=== PATIENT | female | born 1970 | race Caucasian/White ===

== ENCOUNTER 2017-06-08 21:37 | Emergency (ER) | payer SELFPAY ==
[2017-06-08 21:50] VITALS: BP 117/75; PULSE 97; TEMP 98.4; BMI 28.3
[2017-06-08] MEDS ORDERED: ALBUTEROL SO4 2.5/IPRATROPIUM 0.5 INH SOL 3 ML VIAL.NEB. NEB ONE (23:12)
[2017-06-08] MEDS ORDERED: SODIUM CHLORIDE 500 ML IV STA (23:12)
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
[2017-06-08 23:57] LABS: URINE APPEARANCE SLCLOUDY; URINE BILIRUBIN NEGATIVE (NEGATIVE); URINE BLOOD NEGATIVE (NEGATIVE); URINE COLOR YELLOW; URINE GLUCOSE (UA) NEGATIVE (NEGATIVE); URINE KETONE NEGATIVE (NEGATIVE); URINE LEUK ESTERASE NEGATIVE (NEGATIVE); URINE NITRITE NEGATIVE (NEGATIVE); URINE PROTEIN NEGATIVE (NEGATIVE); URINE UROBILINOGEN NEGATIVE mg/dL (0.2-1.0)
[2017-06-09] MEDS ORDERED: ALBUTEROL SO4 2.5/IPRATROPIUM 0.5 INH SOL 3 ML VIAL.NEB. NEB ONE (01:05)
[2017-06-09] MEDS ORDERED: ACETAMINOPHEN 325 MG TABLET (FP) ONE (01:09)
[2017-06-09 02:05] LABS: ARTERIAL BLD GAS O2 SATURATION 97.5 % (90-98.9); ARTERIAL BLOOD GAS BASE EXCESS 0.4 meq/l (-2-2); ARTERIAL BLOOD GAS HCO3 24.8 meq/L (22-26); ARTERIAL BLOOD GAS pH 7.39 (7.35-7.45)
[2017-06-09 02:07] LABS: ALLENS TEST POSITIVE; ART PUNCT SITE RIGHT RADIAL; PT. ON O2? NO
[2017-06-09 02:08] LABS: LPM/O2% 21%; TYPE OF O2 ROOM AIR
[2017-06-09 02:09] LABS: METHEMOGLOBIN 0.6 % (0.4-1.5)
== END 2017-06-09 02:32 | disposition home or self-care (01) ==
LOC: JER 21:37
PROC: 3E0F7GC Introduction of Other Therapeutic Substance into Respiratory Tract, Via Natural or Artificial Opening (ICD-10-PCS; principal; 2017-06-08)
PROC: 3E0337Z Introduction of Electrolytic and Water Balance Substance into Peripheral Vein, Percutaneous Approach (ICD-10-PCS; 2017-06-08)
DX: R55 Syncope and collapse (principal); Z86.73 Personal history of transient ischemic attack (TIA), and cerebral infarction without residual deficits; F41.9 Anxiety disorder, unspecified; F17.210 Nicotine dependence, cigarettes, uncomplicated
CPT/HCPCS: 36600; 70450-TC; 71020-TC; 81003; 82375; 82803; 83050; 84703; 99282-25

== ENCOUNTER 2017-09-19 02:42 | Emergency (ER) | payer SELFPAY ==
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
[2017-09-19 03:28] VITALS: BMI 29.9
[2017-09-19 03:59] LABS: URINE APPEARANCE CLEAR; URINE BILIRUBIN NEGATIVE (NEGATIVE); URINE BLOOD 1+ (NEGATIVE); URINE COLOR STRAW; URINE GLUCOSE (UA) NEGATIVE (NEGATIVE); URINE KETONE TRACE (NEGATIVE); URINE LEUK ESTERASE NEGATIVE (NEGATIVE); URINE NITRITE NEGATIVE (NEGATIVE); URINE PROTEIN NEGATIVE (NEGATIVE); URINE UROBILINOGEN NEGATIVE mg/dL (0.2-1.0)
[2017-09-19 04:02] LABS: HCG,QUALITATIVE URINE NEGATIVE
[2017-09-19 04:18] LABS: EPI CELLS RARE /HPF (FEW); URINE HYALINE CAST 1 /lpf; URINE MUCUS RARE
[2017-09-19 05:30] VITALS: BP 113/75; PULSE 91; TEMP 98.4
== END 2017-09-19 06:01 | disposition home or self-care (01) ==
LOC: JER 02:42
DX: S06.0X0A Concussion without loss of consciousness, initial encounter (principal); Y04.2XXA Assault by strike against or bumped into by another person, initial encounter; Y93.89 Activity, other specified; Y92.038 Other place in apartment as the place of occurrence of the external cause; Y07.01 Husband, perpetrator of maltreatment and neglect
CPT/HCPCS: 70450-TC; 70486-TC; 71045-TC; 72125-TC; 81003; 81015; 84703; 99284-25

== ENCOUNTER → 2019-02-12 | Emergency (ER) | payer OTHER | LOC: JER 23:59 ==

== ENCOUNTER 2020-07-26 04:28 | Emergency (ER) | payer OTHER ==
[2020-07-26 04:40] VITALS: BMI 27.6
[2020-07-26] MEDS ORDERED: ACETAMINOPHEN 1000 MG/100 ML VIAL (NON FORMULARY) IVPB ONE (04:42)
[2020-07-26] MEDS ORDERED: morphine CARPU-JECT 2 MG/1 ML DISP.SYRIN IVPUSH ONE (04:43)
[2020-07-26] MEDS ORDERED: morphine SULFATE 4 MG/ML VIAL ONE (04:48)
[2020-07-26 05:29] LABS: BASO % 0.8 % (0-2.0); EOS % 1.4 % (0-4.5); HEMATOCRIT 36.3 % (32.4-45.2); HEMOGLOBIN 11.6 GM/dL (10.7-15.3); LYMPH % 39.6 % (8-40); MCH 27.3 pg (25.7-33.7); MCHC 31.9 g/dl (32.0-36.0); MEAN CELL VOLUME 85.5 fl (80-96); MEAN PLT VOLUME 9.1 fl (7.5-11.1); MONO % 9.3 % (3.8-10.2); NEUT % 48.9 % (42.8-82.8); PLATELET COUNT 245 K/MM3 (134-434); RBC 4.24 M/mm3 (3.60-5.2); RDW 13.7 % (11.6-15.6); WHITE BLOOD COUNT 8.2 K/mm3 (4.0-10.0)
[2020-07-26 05:53] LABS: CHLORIDE 104 mmol/L (98-107); SODIUM 139 mmol/L (136-145)
[2020-07-26 05:55] LABS: CALCIUM 9.1 mg/dL (8.5-10.1)
[2020-07-26 05:56] LABS: ALBUMIN 4.1 g/dl (3.4-5.0); ANION GAP 4 MMOL/L (8-16); BLOOD UREA NITROGEN 16.8 mg/dL (7-18); CO2 31 mmol/L (21-32); GLUCOSE,RANDOM 102 mg/dL (74-106)
[2020-07-26 05:59] LABS: SGOT/AST 11 U/L (15-37); SGPT/ALT 16 U/L (13-61)
[2020-07-26 06:01] LABS: BILIRUBIN,TOTAL 0.2 mg/dL (0.2-1); TOT PROT 7.2 g/dl (6.4-8.2)
[2020-07-26 06:02] LABS: ALK PHOS 84 U/L (45-117)
[2020-07-26] MEDS ORDERED: CLOPIDOGREL BISULFATE 300 MG TABLET PO ONE (06:07)
[2020-07-26] MEDS ORDERED: LIDOCAINE 5% TOPICAL PATCH TP ONE (06:08)
[2020-07-26] MEDS ORDERED: CLOPIDOGREL BISULFATE 300 MG TABLET ONE (06:10)
[2020-07-26] MEDS ORDERED: LIDOCAINE 5% TOPICAL PATCH ONE (06:10)
[2020-07-26] MEDS ORDERED: METOCLOPRAMIDE HCL INJECTION 10 MG/2 ML VIAL IVPUSH ONE (06:21)
[2020-07-26] MEDS ORDERED: METOCLOPRAMIDE HCL INJECTION 10 MG/2 ML VIAL ONE (06:27)
[2020-07-26 06:46] LABS: INR 1.07 (0.83-1.09); PROTHROMBIN TIME (PATIENT) 12.9 SEC (9.7-13.0)
[2020-07-26] MEDS ORDERED: DEXAMETHASONE SOD PHOSPHATE 10 MG/1 ML VIAL IVPUSH ONE (07:17)
[2020-07-26] MEDS ORDERED: ACETAMINOPHEN/CAFFEINE/BUTALBITAL 1 TAB PO ONE (07:17)
[2020-07-26] MEDS ORDERED: MAGNESIUM SULF 50% (8.12 MEQ/2 ML-1 GM VIAL) IVPB ONE (07:17)
[2020-07-26] MEDS ORDERED: DEXAMETHASONE SOD PHOSPHATE 10 MG/1 ML VIAL ONE (07:36)
[2020-07-26] MEDS ORDERED: MAGNESIUM 1GM/D5W - 2 GM/200 ML IVPB IVPB ONE (07:36)
[2020-07-26] MEDS ORDERED: ACETAMINOPHEN/CAFFEINE/BUTALBITAL 1 TAB ONE (07:36)
[2020-07-26 10:06] VITALS: BP 110/63; PULSE 60; TEMP 97.9
[2020-07-26 11:59] LABS: LIPASE 159 U/L (73-393)
[2020-07-26] MEDS ORDERED: LIDOCAINE PATCH REMOVAL MC SCH (22:00)
== END 2020-07-26 10:29 | disposition home or self-care (01) ==
LOC: FER 04:28
PROC: 3E033NZ Introduction of Analgesics, Hypnotics, Sedatives into Peripheral Vein, Percutaneous Approach (ICD-10-PCS; principal; 2020-07-26)
PROC: 3E033GC Introduction of Other Therapeutic Substance into Peripheral Vein, Percutaneous Approach (ICD-10-PCS; 2020-07-26)
DX: R51.9 Headache, unspecified (principal); R07.9 Chest pain, unspecified
CPT/HCPCS: 36415; 70450-TC; 71045-TC-FY; 80053; 82550; 83690; 84484; 85025; 85610; 85651; 86140; 93005; 99285-25; J0131; J1100

== ENCOUNTER 2020-07-31 04:26 | Inpatient (IN) | payer OTHER ==
[2020-07-28 17:26] VITALS: BMI 33.3
[2020-07-31] MEDS ORDERED: LIDOCAINE HCL/PF 2% SDV 5ML VIAL ONE (12:39)
[2020-07-31] MEDS ORDERED: DEXAMETHASONE SOD PHOSPHATE 4 MG/1 ML VIAL ONE (12:39)
[2020-07-31] MEDS ORDERED: fentaNYL CITRATE 250 MCG/5 ML VIAL ONE (12:39)
[2020-07-31] MEDS ORDERED: PROPOFOL 20 ML ONE ×2 (12:39→15:25)
[2020-07-31] MEDS ORDERED: ONDANSETRON 4 MG/2 ML VIAL ONE (12:39)
[2020-07-31] MEDS ORDERED: MIDAZOLAM HCL 2 MG/2 ML SINGLE DOSE VIAL ONE (12:40)
[2020-07-31] MEDS ORDERED: ROCURONIUM BROMIDE 50 MG/5 ML SYRINGE ONE (12:40)
[2020-07-31] MEDS ORDERED: THROMBIN (BOVINE) 5,000 UNIT VIAL TP ONE (13:18)
[2020-07-31] MEDS ORDERED: LIDOCAINE HCL 1% EPINEPHRINE 1:200,000 30 ML VIAL (PF) ONE (13:18)
[2020-07-31] MEDS ORDERED: VANCOMYCIN 1,000 MG VIAL (RESTRICTED TO ID ONLY) IVPB ONE (13:31)
[2020-07-31] MEDS ORDERED: GENTAMICIN SO4 80 MG/2 ML VIAL ONE (13:36)
[2020-07-31] MEDS ORDERED: ceFAZolin SODIUM 1 GM VIAL IVPB ONE (13:59)
[2020-07-31] MEDS ORDERED: ceFAZolin SODIUM 1 GM VIAL ONE (14:12)
[2020-07-31] MEDS ORDERED: VANCOMYCIN 1,000 MG VIAL (RESTRICTED TO ID ONLY) ONE (14:12)
[2020-07-31] MEDS ORDERED: EPHEDRINE SULFATE/0.9% NACL/PF 50 MG/10 ML SYRINGE NR ONE (15:43)
[2020-07-31] MEDS ORDERED: GLYCOPYRROLATE 0.2 MG/1 ML VIAL ONE (15:47)
[2020-07-31] MEDS ORDERED: NEOSTIGMINE METHYLSULFATE 0.5 MG/1 ML - 10 ML MDV ONE (15:47)
[2020-07-31] MEDS ORDERED: ALBUTEROL SO4 HFA INHALER IH PRN (15:56)
[2020-07-31] MEDS ORDERED: ONDANSETRON 4 MG TABLET PO PRN (15:56)
[2020-07-31] MEDS ORDERED: oxyCODONE HCL 5 MG TABLET PO PRN ×2 (15:57)
[2020-07-31] MEDS ORDERED: ONDANSETRON 4 MG/2 ML VIAL IVPUSH PRN (15:57)
[2020-07-31] MEDS ORDERED: diphenhydrAMINE HCL 25 MG CAPSULE (FP) PO PRN (15:57)
[2020-07-31] MEDS ORDERED: SUCRALFATE 1 GM TABLET (FP) PO SCH (16:00)
[2020-07-31] MEDS ORDERED: LACTATED RINGERS SOLUTION 1,000 ML/1,000 ML INFUS.BAG IV SCH (16:00)
[2020-07-31] MEDS ORDERED: ACETAMINOPHEN INJECTION 100 ML IVPB ONE (16:34)
[2020-07-31] MEDS ORDERED: HYDROmorphone HCl 2 MG/ML VIAL IVPUSH ONE (16:35)
[2020-07-31] MEDS ORDERED: ACETAMINOPHEN 1000 MG/100 ML VIAL (NON FORMULARY) IVPB ONE ×2 (16:36→16:50)
[2020-07-31] MEDS ORDERED: HYDROmorphone HCl 2 MG/ML VIAL ONE (16:48)
[2020-07-31] MEDS ORDERED: HYDROmorphone HCL CARPU-JECT 2 MG/1 ML DISP.SYRIN IVPUSH ONE (16:51)
[2020-07-31] MEDS ORDERED: CEFAZOLIN 1 GM/D5W 1 GM/50 ML BAG IVPB SCH (18:00)
[2020-07-31] MEDS ORDERED: PT OWN MED DRAWER 7, Y5N ONE ×3 (18:30→23:38)
[2020-07-31] MEDS: morphine SULFATE 4 MG/ML VIAL IVPUSH PRN ×2 (18:56→23:26)
[2020-07-31] MEDS: CALCIUM 500MG/VIT-D 200 UNITS COMBO TABLET (FP) PO SCH (21:17)
[2020-07-31] MEDS: HEPARIN NA (PORCINE) 5,000 UNITS/ML 1ML VIAL SQ SCH (21:17)
[2020-07-31] MEDS: METOCLOPRAMIDE HCL 10 MG TABLET (FP) PO SCH (21:17)
[2020-07-31] MEDS: SERTRALINE HCL 25 MG TABLET (FP) PO SCH (21:17)
[2020-07-31] MEDS: DOCUSATE SODIUM 100 MG CAPSULE (FP) PO SCH (21:17)
[2020-07-31] MEDS: buPROPion HCL 75 MG TABLET PO SCH (23:39)
[2020-08-01] MEDS ORDERED: PT OWN MED DRAWER 7, Y5N ONE ×3 (01:50→23:08)
[2020-08-01] MEDS ORDERED: DEXTROSE 5%-WATER - 50 ML IVPB ONE ×2 (01:59→08:55)
[2020-08-01] MEDS ORDERED: ceFAZolin SODIUM 1 GM VIAL ONE ×2 (01:59→08:55)
[2020-08-01] MEDS: CEFAZOLIN 1 GM in DEXTROSE 5%-WATER - 50 ML IVPB SCH ×2 (02:02→11:07)
[2020-08-01] MEDS: morphine SULFATE 4 MG/ML VIAL IVPUSH PRN (04:17)
[2020-08-01] MEDS: DOCUSATE SODIUM 100 MG CAPSULE (FP) PO SCH (06:14)
[2020-08-01] MEDS: HEPARIN NA (PORCINE) 5,000 UNITS/ML 1ML VIAL SQ SCH (06:15)
[2020-08-01] MEDS: LEVOTHYROXINE NA 50 MCG TABLET (FP) PO SCH (06:15)
[2020-08-01] MEDS ORDERED: HYDROmorphone HCl 2 MG/ML VIAL IVPB ONE (08:00)
[2020-08-01] MEDS ORDERED: FERROUS SO4 325 MG TABLET (FP) PO SCH (08:00)
[2020-08-01] MEDS ORDERED: PCA PUMP NR ONE (08:18)
[2020-08-01] MEDS: HYDROmorphone *PCA* 10MG/50ML DISP.SYRIN PCA SCH (08:22)
[2020-08-01] MEDS ORDERED: FOLIC ACID 1 MG TABLET (FP) PO SCH (10:00)
[2020-08-01 10:29] LABS: BASO % 0.6 % (0-2.0); EOS % 0.3 % (0-4.5); HEMATOCRIT 35.3 % (32.4-45.2); HEMOGLOBIN 11.3 GM/dL (10.7-15.3); LYMPH % 24.8 % (8-40); MCH 27.3 pg (25.7-33.7); MCHC 31.8 g/dl (32.0-36.0); MEAN CELL VOLUME 85.9 fl (80-96); MEAN PLT VOLUME 9.5 fl (7.5-11.1); MONO % 9.6 % (3.8-10.2); NEUT % 64.7 % (42.8-82.8); PLATELET COUNT 254 K/MM3 (134-434); RBC 4.11 M/mm3 (3.60-5.2); RDW 14.1 % (11.6-15.6)
[2020-08-01 11:12] LABS: POTASSIUM 4.2 mmol/L (3.5-5.1)
[2020-08-01 11:14] LABS: ALBUMIN 3.6 g/dl (3.4-5.0); BLOOD UREA NITROGEN 5.6 mg/dL (7-18); CALCIUM 8.8 mg/dL (8.5-10.1)
[2020-08-01 11:16] LABS: MAGNESIUM 2.3 mg/dL (1.8-2.4)
[2020-08-01 11:18] LABS: PHOSPHOROUS 4.4 mg/dL (2.5-4.9)
[2020-08-01 11:19] LABS: BILIRUBIN,TOTAL 0.3 mg/dL (0.2-1); TOT PROT 6.1 g/dl (6.4-8.2)
[2020-08-01] MEDS: buPROPion HCL 75 MG TABLET PO SCH ×2 (11:28→22:07)
[2020-08-01] MEDS: CALCIUM 500MG/VIT-D 200 UNITS COMBO TABLET (FP) PO SCH ×2 (11:29→22:07)
[2020-08-01] MEDS: MULTIVITAMINS THER W-MINERALS COMBO TABLET (FP) PO SCH (11:29)
[2020-08-01] MEDS: METOCLOPRAMIDE HCL 10 MG TABLET (FP) PO SCH ×2 (11:29→22:07)
[2020-08-01] MEDS: PANTOPRAZOLE 40 MG TABLET PO SCH (11:29)
[2020-08-01] MEDS: BENZOCAINE/MENTH/CETYLPYRD CL 1 EACH LOZENGE MM PRN (11:38)
[2020-08-01] MEDS: LACTATED RINGERS SOLUTION 1,000 ML/1,000 ML INFUS.BAG IV SCH (16:49)
[2020-08-01] MEDS: LORazepam 2 MG/ML SDV VIAL IVPUSH PRN (22:03)
[2020-08-02] MEDS: CALCIUM 500MG/VIT-D 200 UNITS COMBO TABLET (FP) PO SCH ×3 (02:13→21:39)
[2020-08-02] MEDS: METOCLOPRAMIDE HCL 10 MG TABLET (FP) PO SCH ×3 (02:14→21:39)
[2020-08-02] MEDS: SERTRALINE HCL 25 MG TABLET (FP) PO SCH ×2 (02:21→21:39)
[2020-08-02] MEDS ORDERED: LORazepam 2 MG/ML SDV VIAL IVPUSH ONE (04:07)
[2020-08-02] MEDS: SCOPOLAMINE HYDROBROMIDE 1 PATCH PATCH.TD72 TD SCH (05:01)
[2020-08-02 08:24] LABS: BASO % 0.4 % (0-2.0); EOS % 0.2 % (0-4.5); HEMATOCRIT 37.6 % (32.4-45.2); HEMOGLOBIN 12.1 GM/dL (10.7-15.3); LYMPH % 15.7 % (8-40); MCH 27.8 pg (25.7-33.7); MCHC 32.3 g/dl (32.0-36.0); MEAN CELL VOLUME 86.1 fl (80-96); MONO % 12.6 % (3.8-10.2); NEUT % 71.1 % (42.8-82.8); PLATELET COUNT 234 K/MM3 (134-434); RBC 4.37 M/mm3 (3.60-5.2); RDW 14.1 % (11.6-15.6); WHITE BLOOD COUNT 14.7 K/mm3 (4.0-10.0)
[2020-08-02 08:39] LABS: POTASSIUM 4.1 mmol/L (3.5-5.1)
[2020-08-02 08:52] LABS: CALCIUM 8.9 mg/dL (8.5-10.1)
[2020-08-02 08:53] LABS: ALBUMIN 3.8 g/dl (3.4-5.0); BLOOD UREA NITROGEN 6.5 mg/dL (7-18)
[2020-08-02 08:55] LABS: MAGNESIUM 2.2 mg/dL (1.8-2.4)
[2020-08-02 08:56] LABS: CREATININE 0.8 mg/dL (0.55-1.3)
[2020-08-02] MEDS: LEVOTHYROXINE NA 50 MCG TABLET (FP) PO SCH (08:56)
[2020-08-02] MEDS: buPROPion HCL 75 MG TABLET PO SCH ×2 (08:56→20:39)
[2020-08-02 08:57] LABS: BILIRUBIN,TOTAL 0.5 mg/dL (0.2-1); TOT PROT 6.7 g/dl (6.4-8.2)
[2020-08-02] MEDS: HYDROmorphone *PCA* 10MG/50ML DISP.SYRIN PCA SCH (09:16)
[2020-08-02] MEDS: LORazepam 2 MG/ML SDV VIAL IVPUSH PRN (09:52)
[2020-08-02] MEDS: PANTOPRAZOLE 40 MG TABLET PO SCH (11:24)
[2020-08-02] MEDS: MULTIVITAMINS THER W-MINERALS COMBO TABLET (FP) PO SCH (11:25)
[2020-08-02] MEDS: LACTATED RINGERS SOLUTION 1,000 ML/1,000 ML INFUS.BAG IV SCH (11:29)
[2020-08-03 07:20] LABS: BASO % 0.5 % (0-2.0); EOS % 0.5 % (0-4.5); HEMATOCRIT 36.8 % (32.4-45.2); HEMOGLOBIN 11.9 GM/dL (10.7-15.3); LYMPH % 18.3 % (8-40); MCH 27.6 pg (25.7-33.7); MCHC 32.2 g/dl (32.0-36.0); MEAN CELL VOLUME 85.7 fl (80-96); MEAN PLT VOLUME 8.9 fl (7.5-11.1); MONO % 11.7 % (3.8-10.2); PLATELET COUNT 231 K/MM3 (134-434); RDW 13.8 % (11.6-15.6); WHITE BLOOD COUNT 11.5 K/mm3 (4.0-10.0)
[2020-08-03] MEDS: LEVOTHYROXINE NA 50 MCG TABLET (FP) PO SCH (07:52)
[2020-08-03 08:02] LABS: POTASSIUM 4.1 mmol/L (3.5-5.1)
[2020-08-03 08:25] LABS: CALCIUM 8.6 mg/dL (8.5-10.1)
[2020-08-03 08:26] LABS: ALBUMIN 3.3 g/dl (3.4-5.0); BLOOD UREA NITROGEN 8.9 mg/dL (7-18)
[2020-08-03 08:29] LABS: CREATININE 0.8 mg/dL (0.55-1.3)
[2020-08-03 08:30] LABS: BILIRUBIN,TOTAL 0.4 mg/dL (0.2-1)
[2020-08-03 08:31] LABS: TOT PROT 6.4 g/dl (6.4-8.2)
[2020-08-03] MEDS: buPROPion HCL 75 MG TABLET PO SCH ×2 (12:02→21:32)
[2020-08-03] MEDS: LACTATED RINGERS SOLUTION 1,000 ML/1,000 ML INFUS.BAG IV SCH (12:05)
[2020-08-03] MEDS: CALCIUM 500MG/VIT-D 200 UNITS COMBO TABLET (FP) PO SCH ×2 (12:16→21:33)
[2020-08-03] MEDS: MULTIVITAMINS THER W-MINERALS COMBO TABLET (FP) PO SCH (12:16)
[2020-08-03] MEDS: METOCLOPRAMIDE HCL 10 MG TABLET (FP) PO SCH ×2 (12:16→21:33)
[2020-08-03] MEDS: PANTOPRAZOLE 40 MG TABLET PO SCH (12:16)
[2020-08-03] MEDS ORDERED: DEXAMETHASONE SOD PHOSPHATE 4 MG/1 ML VIAL IVPUSH ONE (17:26)
[2020-08-03] MEDS ORDERED: PT OWN MED DRAWER 7, Y5N ONE (21:20)
[2020-08-03] MEDS: SERTRALINE HCL 25 MG TABLET (FP) PO SCH (21:33)
[2020-08-03] MEDS ORDERED: ONDANSETRON 4 MG/2 ML VIAL IVPUSH ONE (23:08)
[2020-08-03] MEDS: HYDROmorphone *PCA* 10MG/50ML DISP.SYRIN PCA SCH (23:20)
[2020-08-04] MEDS: LEVOTHYROXINE NA 50 MCG TABLET (FP) PO SCH (06:57)
[2020-08-04] MEDS: METOCLOPRAMIDE HCL 10 MG TABLET (FP) PO SCH ×2 (09:59→21:39)
[2020-08-04] MEDS: PANTOPRAZOLE 40 MG TABLET PO SCH (09:59)
[2020-08-04] MEDS: MULTIVITAMINS THER W-MINERALS COMBO TABLET (FP) PO SCH (09:59)
[2020-08-04] MEDS: buPROPion HCL 75 MG TABLET PO SCH ×2 (09:59→21:44)
[2020-08-04] MEDS: CALCIUM 500MG/VIT-D 200 UNITS COMBO TABLET (FP) PO SCH ×2 (09:59→21:39)
[2020-08-04] MEDS: LACTATED RINGERS SOLUTION 1,000 ML/1,000 ML INFUS.BAG IV SCH ×2 (11:23→15:50)
[2020-08-04] MEDS: HYDROmorphone *PCA* 10MG/50ML DISP.SYRIN PCA SCH (11:33)
[2020-08-04] MEDS ORDERED: PT OWN MED DRAWER 7, Y5N ONE ×3 (11:34→22:18)
[2020-08-04] MEDS ORDERED: oxyCODONE HCL 5 MG TABLET PO PRN (18:03)
[2020-08-04] MEDS ORDERED: ACETAMINOPHEN 325 MG TABLET (FP) PO PRN (18:03)
[2020-08-04] MEDS ORDERED: PCA PUMP NR ONE (18:10)
[2020-08-04] MEDS: oxyCODONE HCL 5 MG TABLET PO PRN (19:38)
[2020-08-04] MEDS: SERTRALINE HCL 25 MG TABLET (FP) PO SCH (21:40)
[2020-08-04] MEDS: POLYETHYLENE GLYCOL 3350 119 GM BTL PO SCH (21:51)
[2020-08-05] MEDS: oxyCODONE HCL 5 MG TABLET PO PRN ×3 (01:59→20:13)
[2020-08-05] MEDS ORDERED: PCA PUMP NR ONE (05:01)
[2020-08-05] MEDS: LEVOTHYROXINE NA 50 MCG TABLET (FP) PO SCH (06:40)
[2020-08-05] MEDS ORDERED: PT OWN MED DRAWER 7, Y5N ONE ×2 (08:20→20:10)
[2020-08-05] MEDS: buPROPion HCL 75 MG TABLET PO SCH ×2 (09:08→20:13)
[2020-08-05] MEDS: METOCLOPRAMIDE HCL 10 MG TABLET (FP) PO SCH ×2 (09:08→21:45)
[2020-08-05] MEDS: CALCIUM 500MG/VIT-D 200 UNITS COMBO TABLET (FP) PO SCH ×2 (09:08→21:45)
[2020-08-05] MEDS: MULTIVITAMINS THER W-MINERALS COMBO TABLET (FP) PO SCH (09:08)
[2020-08-05] MEDS: PANTOPRAZOLE 40 MG TABLET PO SCH (09:08)
[2020-08-05] MEDS: POLYETHYLENE GLYCOL 3350 119 GM BTL PO SCH ×2 (09:09→21:53)
[2020-08-05 10:39] LABS: BASO % 0.6 % (0-2.0); EOS % 1.2 % (0-4.5); HEMATOCRIT 34.3 % (32.4-45.2); HEMOGLOBIN 11.1 GM/dL (10.7-15.3); LYMPH % 23.8 % (8-40); MCH 27.6 pg (25.7-33.7); MCHC 32.5 g/dl (32.0-36.0); MEAN PLT VOLUME 8.5 fl (7.5-11.1); MONO % 8.9 % (3.8-10.2); NEUT % 65.5 % (42.8-82.8); PLATELET COUNT 257 K/MM3 (134-434); RBC 4.03 M/mm3 (3.60-5.2); RDW 13.6 % (11.6-15.6); WHITE BLOOD COUNT 8.2 K/mm3 (4.0-10.0)
[2020-08-05 11:09] LABS: POTASSIUM 3.9 mmol/L (3.5-5.1)
[2020-08-05 11:10] LABS: CALCIUM 8.2 mg/dL (8.5-10.1)
[2020-08-05 11:11] LABS: BLOOD UREA NITROGEN 13.3 mg/dL (7-18)
[2020-08-05 11:14] LABS: CREATININE 0.8 mg/dL (0.55-1.3)
[2020-08-05] MEDS: SCOPOLAMINE HYDROBROMIDE 1 PATCH PATCH.TD72 TD SCH (14:15)
[2020-08-05] MEDS: BENZOCAINE/MENTH/CETYLPYRD CL 1 EACH LOZENGE MM PRN (18:21)
[2020-08-05] MEDS: SERTRALINE HCL 25 MG TABLET (FP) PO SCH (21:45)
[2020-08-06] MEDS ORDERED: ALPRAZolam 1 MG TABLET PO PRN (00:59)
[2020-08-06 06:45] VITALS: BP 116/72; PULSE 72; TEMP 97.3
[2020-08-06] MEDS: LEVOTHYROXINE NA 50 MCG TABLET (FP) PO SCH (06:46)
[2020-08-06] MEDS ORDERED: PT OWN MED DRAWER 7, Y5N ONE (09:26)
[2020-08-06] MEDS: METOCLOPRAMIDE HCL 10 MG TABLET (FP) PO SCH (10:56)
[2020-08-06] MEDS: buPROPion HCL 75 MG TABLET PO SCH (10:56)
[2020-08-06] MEDS: PANTOPRAZOLE 40 MG TABLET PO SCH (10:56)
[2020-08-06] MEDS: MULTIVITAMINS THER W-MINERALS COMBO TABLET (FP) PO SCH (10:56)
[2020-08-06] MEDS: CALCIUM 500MG/VIT-D 200 UNITS COMBO TABLET (FP) PO SCH (10:56)
[2020-08-06] MEDS: POLYETHYLENE GLYCOL 3350 119 GM BTL PO SCH (11:08)
[2020-08-06] MEDS: oxyCODONE HCL 5 MG TABLET PO PRN (11:19)
== END 2020-08-06 13:12 | disposition home or self-care (01) | DRG 321 ==
LOC: J2C 04:26 → J8W 18:15 → J4W 08-02 19:02
PROVIDERS: ADMIT Neurological Surgery; ATTEND Neurological Surgery
PROC: 0RG2070 Fusion of 2 or more Cervical Vertebral Joints with Autologous Tissue Substitute, Anterior Approach, Anterior Column, Open Approach (ICD-10-PCS; 2020-07-31)
PROC: 0RB30ZZ Excision of Cervical Vertebral Disc, Open Approach (ICD-10-PCS; 2020-07-31)
PROC: B01BZZZ Fluoroscopy of Spinal Cord (ICD-10-PCS; 2020-07-31)
PROC: 4A1004G Monitoring of Central Nervous Electrical Activity, Intraoperative, Open Approach (ICD-10-PCS; 2020-07-31)
PROC: 00NW0ZZ Release Cervical Spinal Cord, Open Approach (ICD-10-PCS; 2020-07-31)
PROC: 0PS304Z Reposition Cervical Vertebra with Internal Fixation Device, Open Approach (ICD-10-PCS; 2020-07-31)
PROC: 0RG10A0 Fusion of Cervical Vertebral Joint with Interbody Fusion Device, Anterior Approach, Anterior Column, Open Approach (ICD-10-PCS; principal; 2020-07-31 12:45)
DX: M47.12 Other spondylosis with myelopathy, cervical region (principal); M40.292 Other kyphosis, cervical region; M50.10 Cervical disc disorder with radiculopathy, unspecified cervical region; J45.909 Unspecified asthma, uncomplicated; F41.8 Other specified anxiety disorders; E03.9 Hypothyroidism, unspecified; M54.2 Cervicalgia; M54.12 Radiculopathy, cervical region; R13.19 Other dysphagia
CPT/HCPCS: 36415; 72125-TC; 73130-TC-LT-FY; 74230-TC-FY; 76000-TC-FY; 80048; 80053; 83735; 84100; 84443; 84703; 85025; 92611-GN; 94010; 94760; 97116-GP; 97162-GP; J0131; J1644